=== PATIENT | male | born 1955 | race Caucasian/White ===

== ENCOUNTER 2022-04-21 16:59 | Emergency (ER) | payer MEDICARE, OTHER ==
[2022-04-21] MEDS ORDERED: SODIUM BICARB 8.4% 50 MEQ/50 ML (ABBOTT) SYR INJ ONE (17:03)
[2022-04-21] MEDS ORDERED: EPINEPHrine 0.1 MG/ML 10 ML (HOSPIRA) SYR INJ ONE (17:03)
[2022-04-21] MEDS ORDERED: CALCIUM CHLORIDE 1 GM/10 ML (IMS) SYR INJ ONE (17:03)
[2022-04-21] MEDS ORDERED: EPINEPHrine (PYXIS DRIP KIT ONLY) 1 MG/ML X 4 AMPS ONE (17:16)
[2022-04-21] MEDS ORDERED: NS (IVPB) 250 ML ONE (17:17)
--- NOTE | 2022-04-21 17:43 | ED CPR ---
HPI-CPR General Chief Complaint: Code Blue Stated Complaint: CARDIAC ARREST Source of Information: EMS History of Present Illness Date Seen by Provider: Apr 21, 2022 Time Seen by Provider: 16:55 Initial Comments 67-year-old male arrives via EMS in cardiac arrest with ACLS ongoing. Paramedics state that he was at a local football game, walks to the middle of the field after having been otherwise well and clutched his chest, said something was not right and collapsed to the field. He was unresponsive and CPR was started by bystanders and resumed by EMS on their arrival. He was transported with CPR in progress. Initial reported rhythm was PEA. Only known medical history at the time of arrival was possible COPD per EMS Secondary to arrival they confirm EMS story. Allergies and Home Medications Allergies Coded Allergies: No Known Drug Allergies (Unverified , 04/22/22) Patient Home Medication List Home Medication List Reviewed: No Review of Systems Review of Systems Constitutional: other (Cardiac arrest unable to obtain other review of systems) Past [id number]-[id number] Hx Past Medical History Surgery/Hospitalization HX: Unable to obtain medical social surgical or family history due to cardiac arrest Physical Exam Vital Signs Vital Signs - First Documented 04/21/22 04/21/22 04/21/22 17:00 17:31 17:40 Pulse 0 B/P (MAP) 197/123 (147) Pulse Ox 81 O2 Delivery Ambu Bag Capillary Refill : Height, Weight, BMI Height: '" Weight: lbs. oz. kg; BMI Method: General Appearance: Other (unresponsive, ongoing CPR) HEENT: Other (Pupils fixed, dilated) Neck: Normal Inspection Respiratory: Other (Coarse breath sounds bilaterally) Cardiovascular: Other (Pulseless, CPR in progress) Gastrointestinal: No Organomegaly, Soft Neurologic/Psychiatric: Other (Unresponsive, CPR in progress) Skin: Other (Peripheral cyanosis bilateral hands, central cyanosis of his face) Procedures/Interventions Lumen: triple Position: femoral (R) Complications: none Post Position: sutured, good blood return Reason for Intubation: Cardiac arrest Intubation Method: orotracheal Positive End Tide CO2: Yes Breath Sounds after Intubation: bilateral-equal Intubation Complications: no complications Post Intubation Xray: No Progress/Results/Core Measures Results/Orders My Orders Orders - HIRAL ENGLAND DO Epinephrine (Pyxis Drip Kit) (Epinephrin (04/21/22 17:16) Ns (Ivpb) (Sodium Chloride 0.9%) (04/21/22 17:17) Ns Iv 1000 Ml (Sodium Chloride 0.9%) (04/21/22 18:53) Calcium Chloride 10% Injection (Calcium (04/21/22 17:03) Epinephrine Emergency Syringe (Epinephr (04/21/22 17:03) Sodium Bicarbonate 8.4% Syr (Sodium Bica (04/21/22 17:03) Vital Signs/I&O 04/21/22 04/21/22 04/21/22 04/21/22 17:00 17:31 17:40 18:41 Pulse 0 0 B/P (MAP) 197/123 (147) 0/0 Pulse Ox 81 0 81 O2 Delivery Ambu Bag Mechanical Ventilator 04/22/22 00:00 Intake Total 500 ml Balance 500 ml Departure Communication (Admissions) Patient arrived in cardiac arrest, pulseless with asystole as initial rhythm. ACLS protocols were resumed upon his arrival here. Glucose checked early on and it was normal. Pupils were fixed and dilated time of his arrival. The Keith auto pulse was placed and after this the patient was intubated without dif ficulty. CPR was resumed for several cycles and we did briefly get a bradycardic pulse in the 40s to 50s and highest I saw in the 60s. We did have a blood pressure with this though it was low. In the process of setting up an epinephrine drip the patient lost pulses once again. Unfortunately after several rounds of CPR the patient had been with a total downtime of about 50 minutes when accounting for the 20-minute prehospital time. Pulses were checked and no cardiac activity confirmed with bedside ultrasound. Time of 173. Had a long discussion with the family and they are with patient at bedside at this time. Impression Primary Impression: Cardiac arrest Disposition: 20 Condition: Departure-Patient Inst. Referrals: NO,LOCAL PHYSICIAN (PCP/Family) Primary Care Physician HIRAL ENGLAND DO Apr 21, 2022 17:43
[2022-04-21 18:41] VITALS: BP 0/0
[2022-04-21] MEDS ORDERED: NS IV 1000 ML 1,000 ML ONE (18:53)
== END 2022-04-21 20:20 | disposition expired ==
LOC: EDUNIT# 16:59 → ER 17:02
DX: I46.9 Cardiac arrest, cause unspecified (principal)
CPT/HCPCS: 31500; 36680; 51702; 99291